=== PATIENT | female | born 1945 | race Caucasian/White ===

== ENCOUNTER 2022-07-14 15:00 | Outpatient (CLI) | payer OTHER ==
[~2022-07-14 15:00] MED LIST: HYZAAR 100-121 UDTAB; MECLIZINE HCL25 MG PO; NEURONTIN600 MG
== END 2022-07-14 15:01 | disposition home or self-care (01) ==
LOC: LAB 15:00
PROVIDERS: ATTEND Internal Medicine Gastroenterology
DX: Z11.52 Encounter for screening for COVID-19 (principal); Z20.822 Contact with and (suspected) exposure to COVID-19; Z20.828 Contact with and (suspected) exposure to other viral communicable diseases

== ENCOUNTER 2023-08-21 13:40 | Outpatient (CLI) | payer OTHER | END 2023-08-21 13:48 | disposition home or self-care (01) | LOC: RAD 13:40 | PROVIDERS: ATTEND Orthopaedic Surgery | DX: M19.011 Primary osteoarthritis, right shoulder (principal); M19.012 Primary osteoarthritis, left shoulder ==

== ENCOUNTER 2024-07-25 11:28 | Outpatient (CLI) | payer OTHER | END 2024-07-25 11:29 | disposition home or self-care (01) | LOC: NUCLEAR 11:28 | PROVIDERS: ATTEND Internal Medicine Geriatric Medicine | DX: M81.0 Age-related osteoporosis without current pathological fracture (principal); M15.0 Primary generalized (osteo)arthritis ==

== ENCOUNTER 2024-07-25 13:08 | Outpatient (CLI) | payer OTHER | END 2024-07-25 13:17 | disposition home or self-care (01) | LOC: MAMO-SONO 13:08 | PROVIDERS: ATTEND Internal Medicine Geriatric Medicine | DX: C50.919 Malignant neoplasm of unspecified site of unspecified female breast (principal); Z12.31 Encounter for screening mammogram for malignant neoplasm of breast; N60.12 Diffuse cystic mastopathy of left breast; N60.11 Diffuse cystic mastopathy of right breast ==

== ENCOUNTER → 2024-08-16 | Outpatient (CLI) | payer OTHER | END | disposition home or self-care (01) | LOC: MAMO-SONO 12:54 | PROVIDERS: ATTEND Internal Medicine Geriatric Medicine | DX: D05.81 Other specified type of carcinoma in situ of right breast (principal) ==

== ENCOUNTER 2024-09-07 10:56 | Outpatient (CLI) | payer OTHER | END 2024-09-07 11:10 | disposition home or self-care (01) | LOC: TOM 10:56 | PROVIDERS: ATTEND Psychiatry & Neurology Clinical Neurophysiology | DX: S06.330A Contusion and laceration of cerebrum, unspecified, without loss of consciousness, initial encounter (principal) ==

== ENCOUNTER 2024-10-19 07:14 | Outpatient (CLI) | payer OTHER | END 2024-10-19 07:15 | disposition home or self-care (01) | LOC: NUCLEAR 07:14 | PROVIDERS: ATTEND Orthopaedic Surgery | DX: T84.498A Other mechanical complication of other internal orthopedic devices, implants and grafts, initial encounter (principal) | CPT/HCPCS: 78315; A9503 ==

== ENCOUNTER 2025-01-06 10:29 | Outpatient (CLI) | payer OTHER | END 2025-01-06 10:44 | disposition home or self-care (01) | LOC: TOM 10:29 | PROVIDERS: ATTEND Internal Medicine Gastroenterology | DX: R10.30 Lower abdominal pain, unspecified (principal); K63.4 Enteroptosis ==

== ENCOUNTER 2025-04-17 13:19 | Outpatient (CLI) | payer OTHER | END 2025-04-17 13:22 | disposition home or self-care (01) | LOC: SONOGRAMA 13:19 | PROVIDERS: ATTEND Internal Medicine Cardiovascular Disease | DX: E04.1 Nontoxic single thyroid nodule (principal) ==